=== PATIENT | male | born 1985 | race Caucasian/White ===

== ENCOUNTER 2017-09-18 01:55 | Emergency (ER) | payer MEDICAID ==
[~2017-09-18] VITALS: Ht 185.4 cm; Wt 95.3 kg
[2017-09-18] MEDS ORDERED: ONDANSETRON ODT 4 MG ONE (02:07)
[2017-09-18] MEDS ORDERED: ONDANSETRON ODT 4 MG PO ONE (02:30)
[2017-09-18] MEDS ORDERED: ONDANSETRON 2MG/ML, 2ML IVPush ONE (03:00)
[2017-09-18] MEDS ORDERED: SODIUM CHLORIDE 0.9% 1,000ML IVBOLUS ONE (03:00)
[2017-09-18] MEDS ORDERED: ONDANSETRON 2MG/ML, 2ML ONE (03:11)
[2017-09-18 03:27] LABS: BLOOD UREA NITROGEN 16 mg/dL (7-18)
[2017-09-18 04:12] VITALS: BP 120/70
== END 2017-09-18 04:15 | disposition home or self-care (01) ==
LOC: ED 04:05
DX: E86.0 Dehydration (principal); R10.84 Generalized abdominal pain; R11.2 Nausea with vomiting, unspecified
CPT/HCPCS: 36415; 80048; 96361; 96374; 99284; J2405; J7030; Q0162

== ENCOUNTER 2017-10-08 14:13 | Emergency (ER) | payer MEDICAID ==
[~2017-10-08] VITALS: Ht 185.4 cm; Wt 98.1 kg
[2017-10-08] MEDS ORDERED: SODIUM CHLORIDE FLUSH 10ML SYR IVF ONE (15:00)
[2017-10-08] MEDS ORDERED: DIPH,PERTUSS(ACELL),TET VAC/PF 0.5 ML IM-VACC ONE (15:00)
[2017-10-08] MEDS ORDERED: LIDOCAINE 1%-EPI 1:100K, 20ML SQ ONE (15:00)
[2017-10-08] MEDS ORDERED: CLINDAMYCIN PMX 600MG/50ML 50 ML IVPB ONE (15:00)
[2017-10-08 15:29] LABS: HEMATOCRIT 37.1 % (39.2-51.8); HEMOGLOBIN 12.3 g/dL (13.7-18.0); WHITE BLOOD COUNT 9.6 x10^3/uL (3.4-10)
[2017-10-08 15:41] LABS: BLOOD UREA NITROGEN 14 mg/dL (7-18)
[2017-10-08] MEDS ORDERED: CLINDAMYCIN PMX 600MG/50ML 50 ML ONE (15:50)
[2017-10-08] MEDS ORDERED: OMNIPAQUE 350 MG/ML, 75ML BOTTLE ONE (16:11)
[2017-10-08 16:33] VITALS: BP 127/64
== END 2017-10-08 17:49 | disposition home or self-care (01) ==
LOC: ED 17:05
DX: L03.211 Cellulitis of face (principal); L01.01 Non-bullous impetigo
CPT/HCPCS: 36415; 70487; 80048; 82040; 85025; 96365; 99285; Q9967

== ENCOUNTER 2019-03-05 09:37 | Emergency (ER) | payer MEDICAID, OTHER ==
[~2019-03-05] VITALS: Ht 185.4 cm; Wt 112.0 kg
[2019-03-05 10:01] VITALS: BP 135/88
[2019-03-05] MEDS ORDERED: LIDOCAINE-MPF 1%, 5ML INFIL ONE (10:30)
[2019-03-05] MEDS ORDERED: LIDOCAINE-MPF 1%, 5ML ONE (10:32)
--- NOTE | 2019-03-05 12:01 | NUR ---
Patient/Caregiver given discharge instructions and they have confirmed that they understand the instructions. Patient ambulatory with steady gait.
== END 2019-03-05 12:03 | disposition home or self-care (01) ==
LOC: ED 11:53
DX: L02.413 Cutaneous abscess of right upper limb (principal); F17.200 Nicotine dependence, unspecified, uncomplicated
CPT/HCPCS: 10060; 99284

== ENCOUNTER 2020-06-10 20:23 | Emergency (ER) | payer MEDICAID ==
[~2020-06-10] VITALS: Ht 188 cm; Wt 121.2 kg
[2020-06-10 20:24] VITALS: BP 155/83
[2020-06-10] MEDS ORDERED: IBUPROFEN 600 MG TABLET ONE (21:22)
[2020-06-10] MEDS ORDERED: LIDOCAINE 2%,20 ML JEL.PF.APP MM ONE (21:23)
[2020-06-10] MEDS ORDERED: HYDROcodone/APAP 5/325 TABLET ONE (21:23)
[2020-06-10] MEDS ORDERED: IBUPROFEN 600 MG TABLET PO ONE (21:30)
[2020-06-10] MEDS ORDERED: LIDOCAINE JELLY 2%, 30GM TP ONE (21:30)
[2020-06-10] MEDS ORDERED: HYDROcodone/APAP 5/325 TABLET PO PRN (21:30)
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
[2020-06-10] MEDS ORDERED: NEOSPORIN OINT. PKT 1 PACKET ONE (23:08)
--- NOTE | 2020-06-10 23:40 | NUR ---
Pts wound were cleaned with sterile water and then providine iodine surgical scrubs to disinfect. 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 After cleaning was completed bacitracin and barrier film applied to wounds. Pt tolerated well and then optifoam dressing applied to nurmerous wounds. left over supplies given to patient for self care at home.
--- NOTE | 2020-06-10 23:43 | NUR ---
Patient/Caregiver given discharge instructions and they have confirmed that they understand the instructions. Patient ambulatory with steady gait. Pts wound were cleaned with sterile water and then providine iodine surgical scrubs to disinfect. 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 After cleaning was completed bacitracin and barrier film applied to wounds. Pt tolerated well and then optifoam dressing applied to nurmerous wounds. left over supplies given to patient for self care at home.
== END 2020-06-10 23:47 | disposition home or self-care (01) ==
LOC: ED 22:16
DX: S06.0X0A Concussion without loss of consciousness, initial encounter (principal); S90.812A Abrasion, left foot, initial encounter; S90.811A Abrasion, right foot, initial encounter; S30.811A Abrasion of abdominal wall, initial encounter; S30.810A Abrasion of lower back and pelvis, initial encounter; S50.811A Abrasion of right forearm, initial encounter; S80.211A Abrasion, right knee, initial encounter; S90.511A Abrasion, right ankle, initial encounter; S90.512A Abrasion, left ankle, initial encounter; V98.8XXA Other specified transport accidents, initial encounter; Y93.89 Activity, other specified; Y92.488 Other paved roadways as the place of occurrence of the external cause; Y99.8 Other external cause status
CPT/HCPCS: 70450; 99284